=== PATIENT | female | born 1965 | race Caucasian/White ===

== ENCOUNTER 2016-10-19 20:12 | Day surgery (SDC) | payer OTHER ==
[~2016-10-19] VITALS: Ht 167.6 cm; Wt 121.6 kg
[2016-10-19 20:58] LABS: HEMATOCRIT 45.1 % (36.0-46.0); MCH 27.4 PG (29.0-34.0); MCHC 32.8 G/DL (30.0-36.0); MCV 83.5 FL (83-99); MEAN PLAT.VOLUME 9.9 uM^3 (9.5-12.4); PLATELET COUNT 357 K/uL (156-360); RBC DIS.WIDTH-CV 14.3 % (11.8-14.6); RBC DIS.WIDTH-SD 43.2 % (39-53); WHITE BLOOD COUNT 18.6 K/uL (4.1-10.2)
[2016-10-19 21:03] LABS: ADD MIUA? YES; BILIRUBIN NEGATIVE; BLOOD NEGATIVE; COLOR YELLOW ((YELLOW)); GLUCOSE (STRIP) NEGATIVE; KETONES NEGATIVE; LEUKOCYTES TRACE; NITRITE NEGATIVE; PROTEIN (STRIP) NEGATIVE; SPECIFIC GRAVITY 1.021 (1.000-1.030)
[2016-10-19 21:08] LABS: CHLORIDE 101 mEq/L (99-109); POTASSIUM 3.5 mEq/L (3.7-5.4); SODIUM 137 mEq/L (136-147)
[2016-10-19 21:10] LABS: GLUCOSE 158 mg/dL (70-99)
[2016-10-19 21:11] LABS: BACTERIA NONE SEEN /HPF; EPITHELIAL CELLS 1+ /HPF; MUCUS TRACE /LPF; RED BLOOD CELLS 0-5 /HPF (0-5); UCUL ADDED? NO
[2016-10-19 21:12] LABS: ANION GAP 12 MEQ/L (2-14); TOTAL BILIRUBIN 1.5 mg/dL (0.0-1.0)
[2016-10-19 21:14] LABS: ALKALINE PHOSPHATASE 71 IU/L (3-129); GFR ESTIMATE (CALCULATED) 50 mL/min/
[2016-10-19 21:15] LABS: UREA NITROGEN (BUN) 18 mg/dL (9-23)
[2016-10-19 21:26] LABS: QUANTITATIVE HCG < 4.0 MIU/ML
[2016-10-20 05:36] LABS: HEMATOCRIT 38.9 % (36.0-46.0); MCH 28.7 PG (29.0-34.0); MCHC 33.7 G/DL (30.0-36.0); MCV 85.3 FL (83-99); MEAN PLAT.VOLUME 10.1 uM^3 (9.5-12.4); PLATELET COUNT 250 K/uL (156-360); RBC DIS.WIDTH-CV 14.3 % (11.8-14.6); RBC DIS.WIDTH-SD 44.3 % (39-53); RED BLOOD COUNT 4.56 M/uL (3.80-5.20); WHITE BLOOD COUNT 16.8 K/uL (4.1-10.2)
[2016-10-20 05:52] LABS: ANION GAP 12 MEQ/L (2-14); CHLORIDE 100 MEQ/L (99-109); GFR ESTIMATE (CALCULATED) > 59 mL/min/; GLUCOSE 195 mg/dL (70-99); POTASSIUM 3.4 MEQ/L (3.7-5.4); SAMPLE HEMOLYSIS CHECK 0; SAMPLE ICTERIC CHECK 0; SAMPLE LIPEMIA CHECK 0; SODIUM 136 MEQ/L (136-147); UREA NITROGEN (BUN) 13 mg/dL (9-23)
[2016-10-20 06:13] VITALS: BP 137/70
[2016-10-20 12:00] VITALS: BP 110/54
[2016-10-20] MEDS ORDERED: KLOR-CON M1010 MEQ PO (16:17)
[2016-10-20] MEDS ORDERED: METHIMAZOLE5 MG PO (16:17)
[2016-10-20] MEDS ORDERED: HYGROTON50 MG PO (16:19)
[2016-10-20] MEDS ORDERED: VITAMIN D22000 UNIT PO (16:19)
[2016-10-20] MEDS ORDERED: TENORMIN25 MG PO (16:19)
[2016-10-20] MEDS ORDERED: VOLTAREN50 MG PO (16:21)
[2016-10-20] MEDS ORDERED: ATENOLOL/CHLOR1 EAC1 PO (17:18)
[2016-10-20] MEDS ORDERED: VOLTAREN-XR100 MG PO (17:19)
[2016-10-20] MEDS ORDERED: ERGOCALCIF50000 UNIT PO (17:19)
[2016-10-20 17:45] VITALS: BP 122/55
[2016-10-20 20:35] VITALS: BP 118/59
[2016-10-20 23:56] VITALS: BP 116/58
[2016-10-21 03:36] VITALS: BP 113/57
[2016-10-21 07:09] LABS: HEMATOCRIT 36.7 % (36.0-46.0); MCH 28.6 PG (29.0-34.0); MCHC 33.5 G/DL (30.0-36.0); MCV 85.3 FL (83-99); MEAN PLAT.VOLUME 9.7 uM^3 (9.5-12.4); PLATELET COUNT 244 K/uL (156-360); RBC DIS.WIDTH-CV 14.1 % (11.8-14.6); RBC DIS.WIDTH-SD 43.7 % (39-53)
[2016-10-21 07:10] LABS: WHITE BLOOD COUNT 11.2 K/uL (4.1-10.2)
[2016-10-21 07:38] LABS: Estimated Average Glucose 148 mg/dL (70-123); HEMOGLOBIN A1c (GLYCOHEMOGLOB) 6.8 % HGB (Below 5.7)
[2016-10-21 07:47] LABS: ANION GAP 9 MEQ/L (2-14); CHLORIDE 101 MEQ/L (99-109); GFR ESTIMATE (CALCULATED) > 59 mL/min/; GLUCOSE 118 mg/dL (70-99); POTASSIUM 3.2 MEQ/L (3.7-5.4); SAMPLE HEMOLYSIS CHECK 0; SAMPLE ICTERIC CHECK 0; SAMPLE LIPEMIA CHECK 0; SODIUM 139 MEQ/L (136-147); UREA NITROGEN (BUN) 15 mg/dL (9-23)
[2016-10-21 07:49] VITALS: BP 120/58
[2016-10-21 11:39] VITALS: BP 134/67
[2016-10-21 15:36] VITALS: BP 129/65
[2016-10-21 20:54] VITALS: BP 130/67
[2016-10-21 23:22] VITALS: BP 143/60
[2016-10-22 04:07] VITALS: BP 128/69
[2016-10-22 07:43] LABS: HEMATOCRIT 38.4 % (36.0-46.0); MCH 27.5 PG (29.0-34.0); MCHC 32.6 G/DL (30.0-36.0); MCV 84.4 FL (83-99); MEAN PLAT.VOLUME 9.5 uM^3 (9.5-12.4); PLATELET COUNT 260 K/uL (156-360); RBC DIS.WIDTH-CV 13.9 % (11.8-14.6); RBC DIS.WIDTH-SD 42.9 % (39-53); RED BLOOD COUNT 4.55 M/uL (3.80-5.20)
[2016-10-22 07:47] LABS: WHITE BLOOD COUNT 6.7 K/uL (4.1-10.2)
[2016-10-22 07:49] LABS: ANION GAP 9 MEQ/L (2-14); CHLORIDE 102 MEQ/L (99-109); GFR ESTIMATE (CALCULATED) > 59 mL/min/; GLUCOSE 111 mg/dL (70-99); POTASSIUM 3.4 MEQ/L (3.7-5.4); SAMPLE HEMOLYSIS CHECK 0; SAMPLE ICTERIC CHECK 0; SAMPLE LIPEMIA CHECK 0; SODIUM 140 MEQ/L (136-147); UREA NITROGEN (BUN) 15 mg/dL (9-23)
[2016-10-22 08:00] VITALS: BP 129/89
[2016-10-22] MEDS ORDERED: OXYCODONE HCL5 MG PO (14:41)
[2016-10-22] MEDS ORDERED: BACTRIM,SEPT1 TABLET PO (14:43)
[2016-10-22] MEDS ORDERED: FLAGYL500 MG PO (14:43)
== END 2016-10-22 15:08 | disposition home or self-care (01) ==
LOC: EME 20:12 → SDC 10-20 01:26 → EME 10-20 01:26 → 2SOUTH 10-20 02:45 → 2EASTP 10-20 02:45
PROVIDERS: Surgery
PROC: 0DTJ4ZZ Resection of Appendix, Percutaneous Endoscopic Approach (ICD-10-PCS; principal; 2016-10-20)
DX: K35.3 Acute appendicitis with localized peritonitis (principal); K66.0 Peritoneal adhesions (postprocedural) (postinfection); B96.20 Unspecified Escherichia coli [E. coli] as the cause of diseases classified elsewhere; K56.5 Intestinal adhesions [bands] with obstruction (postinfection); N83.201 Unspecified ovarian cyst, right side; I10 Essential (primary) hypertension; E66.9 Obesity, unspecified; Z68.42 Body mass index [BMI] 45.0-49.9, adult; M17.10 Unilateral primary osteoarthritis, unspecified knee; M19.049 Primary osteoarthritis, unspecified hand; Z88.8 Allergy status to other drugs, medicaments and biological substances
CPT/HCPCS: 74177; 80048; 80053; 81003; 83036; 84702; 85027; 87070; 87075; 87076; 87077; 87186; 87205; 88304; 99281; 99285; G0378; J1100; J1170; J1335; J1650; J2250; J2270; J2405; J3010; J7030; J7050